=== PATIENT | male | born 1970 | race Caucasian/White ===

== ENCOUNTER 2017-02-26 20:28 | Emergency (ER) | payer MEDICAID ==
[~2017-02-26] VITALS: Ht 177.8 cm; Wt 93.0 kg
[2017-02-26 20:35] VITALS: BP 129/61
--- NOTE | 2017-02-26 22:29 | NUR ---
PT TAKEN TO BED 7
--- NOTE | 2017-02-26 22:31 | NUR ---
Dr. Christian evaluating patient at bedside.
[2017-02-26] MEDS ORDERED: methylPREDNISolone SS 125 MG in WATER STERILE 2 ML IM ONE (22:45)
[2017-02-26] MEDS ORDERED: diphenhydrAMINE 50 MG/ML VIAL IM ONE (22:45)
--- NOTE | 2017-02-26 22:47 | NUR ---
PATIENT PRESENTS TO ED WITH MILD RASH S/P EATING [employer] YESTERDAY . PT STATES HE TOOK BENADRYL 8 HOURS AGO WITH NO RELIEF . DENIES N/V/D; SKIN IS PINK/WARM/DRY; AAOX4 WITH EVEN AND STEADY GAIT; LUNGS CLEAR BL; HR EVEN AND REGULAR; PT DENIES ANY FEVER, CP, SOB, OR COUGH AT THIS TIME; PATIENT STATES PAIN OF 0/10 AT THIS TIME; VSS; PATIENT POSITIONED FOR COMFORT; HOB ELEVATED; BEDRAILS UP X2; BED DOWN. ER MD MADE AWARE OF PT STATUS.
[2017-02-26 23:27] VITALS: BP 139/84
--- NOTE | 2017-02-26 23:27 | NUR ---
Patient discharged with v/s stable. Written and verbal after care instructions given and explained. Patient alert, oriented and verbalized understanding of instructions. Ambulatory with steady gait. All questions addressed prior to discharge. ID band removed. Patient advised to follow up with PMD. Rx of MEDROL DOSEPAK given. Patient educated on indication of medication including possible reaction and side effects. Opportunity to ask questions provided and answered.
== END 2017-02-26 23:27 | disposition home or self-care (01) ==
LOC: MED 20:28
DX: T78.1XXA Other adverse food reactions, not elsewhere classified, initial encounter (principal); R21 Rash and other nonspecific skin eruption; X58.XXXA Exposure to other specified factors, initial encounter
CPT/HCPCS: 96372; 99284; J1200; J2930

== ENCOUNTER 2017-03-02 09:16 | Emergency (ER) | payer MEDICAID ==
[~2017-03-02] VITALS: Ht 175.3 cm; Wt 94.8 kg
[2017-03-02 09:27] VITALS: BP 142/82
--- NOTE | 2017-03-02 10:45 | NUR ---
C/O GENERALIZED PRURITUS, GENERALIZED RASH--5 DAYS WAS SEEN 4 DAYS AGO IN OUR ER; RX METHYLPRED 4MG ADRIANA--PT STATES IT HELPED BUT IT SEEMS RASH AND PRURITUS IS RETURNING. PT AAO, PT CLAIMED I FEEL HOT ON MY HEAD AN DPRESSURE ON MY HEAD, NOTED SOME DRY RASH ON BACK AND FRANCOIS LEG, PA AT BEDSIDE AT THIS TIME, NO SOB NOTED, NO CHEST PAIN,
--- NOTE | 2017-03-02 10:45 | NUR ---
Patient ambulated to bed 4.
--- NOTE | 2017-03-02 10:52 | NUR ---
DR. EPLAEZ AT BEDSIDE
--- NOTE | 2017-03-02 10:59 | NUR ---
PT SITTING IN BED, NOTED ITCHING ON LOWER EXTREMITIES, ENCOURAGED PT TO INCREASED FLUID INTAKE AND PT AGREED WITH IT.
[2017-03-02] MEDS ORDERED: diphenhydrAMINE 50 MG/ML VIAL IM ONE (11:00)
[2017-03-02 12:33] VITALS: BP 120/73
--- NOTE | 2017-03-02 12:33 | NUR ---
Patient discharged with v/s stable. Written and verbal after care instructions given and explained. Patient alert, oriented and verbalized understanding of instructions. Ambulatory with steady gait. All questions addressed prior to discharge. ID band removed. Patient advised to follow up with PMD. Rx of HYDROCORTISONE AND ATARAX given. Patient educated on indication of medication including possible reaction and side effects. Opportunity to ask questions provided and answered.
== END 2017-03-02 12:33 | disposition home or self-care (01) ==
LOC: MED 09:16
DX: L25.9 Unspecified contact dermatitis, unspecified cause (principal); R03.0 Elevated blood-pressure reading, without diagnosis of hypertension
CPT/HCPCS: 96372; 99283; J1200

== ENCOUNTER 2017-03-30 16:30 | Emergency (ER) | payer MEDICAID ==
[~2017-03-30] VITALS: Ht 177.8 cm; Wt 93.4 kg
[2017-03-30 17:58] VITALS: BP 117/76
--- NOTE | 2017-03-30 19:15 | NUR ---
PT PRESENTS TO ER W/C/O RIGHT GREAT TOE PAIN. PT STATES HE STUBBED HIS TOE 1 MONTH AGO BUT THE PAIN HAS PERSISTED AND BECAME WORSE 2 DAYS AGO. ER MD AT BEDSIDE FOR EVAL. REPORT GIVEN TO HILDA SANTACRUZ BY AM HILDA CHA
[2017-03-30 19:47] VITALS: BP 112/75
--- NOTE | 2017-03-30 19:50 | NUR ---
Patient discharged with v/s stable. Written and verbal after care instructions given and explained. Patient alert, oriented and verbalized understanding of instructions. Ambulatory with steady gait. All questions addressed prior to discharge. ID band removed. Patient advised to follow up with PMD. Rx of NORCO, KEFLEX 500MG, BACTRIM DS, given. Patient educated on indication of medication including possible reaction and side effects. Opportunity to ask questions provided and answered.
== END 2017-03-30 19:47 | disposition home or self-care (01) ==
LOC: MED 16:30
DX: L03.032 Cellulitis of left toe (principal)